=== PATIENT | male | born 1950 | race Caucasian/White ===

== ENCOUNTER 2019-10-18 01:18 | Outpatient (CLI) | payer OTHER, SELFPAY ==
[2019-10-18 18:19] LABS: SARS-CoV-2 RNA PCR Negative
== END 2019-10-18 01:19 | disposition home or self-care (01) ==
LOC: ANHCOVIDDT 01:19
PROVIDERS: Radiology Diagnostic Radiology; PCP Nurse Practitioner Adult Health; Visit Provider Nurse Practitioner Adult Health
DX: Z01.812 Encounter for preprocedural laboratory examination (principal); Z20.828 Contact with and (suspected) exposure to other viral communicable diseases
CPT/HCPCS: 87635; C9803; U0003

== ENCOUNTER 2019-10-20 08:45 | Outpatient (CLI) | payer OTHER, SELFPAY ==
[2019-10-16 15:03] VITALS: BMI 29.5
--- NOTE | ~2019-10-20 | CT_ITS ---
EXAMINATION: CT cervical spine w con EXAM DATE: 10/20/2019 12:07 INDICATION: Cervicalgia, cervical and lumbar radiculopathy. Cervical fusion. Total myelogram reques audelia. TECHNIQUE: Spiral CT of the cervical spine was performed with injection of intrathecal contrast, 10 c c Omnipaque 300. Axial images were reviewed. Coronal and sagittal reformatted images were also revi ewed. The dose-length product (DLP) for this examination was 446.56 mGy-cm. The exposure was tailore d according to patient size (auto mA exposure control), and iterative reconstruction (ASIR) was used as additional dose reduction technique. Comparison is made to prior examination from 07/26/2018. FINDINGS: There is adequate intrathecal opacification. There are no acute fractures identified. The o dontoid process is intact. The lateral masses of C1 line up with C2. Interbody and anterior fusion C 5-T1 with solid bone bridging. Hardware is intact. There is 5 mm anterolisthesis C3 on C4 with modera te loss of this disc height, 3 mm anterolisthesis C4 on C5 with moderate loss of this disc height. Mo derate to severe disc disease at T1-2. Some apical emphysema. Level by level evaluation: C2-C3: There is a mild diffuse disc bulge. Uncovertebral joint arthropathy: Mild right. Facet joint arthropathy: Moderate to severe right, mild left. Neural foraminal stenosis: No stenosis. Central canal stenosis: No stenosis. C3-C4: There is a mild to moderate diffuse disc bulge asymmetric to the left Uncovertebral joint arthropathy: Moderate to severe left, mild right. Facet joint arthropathy: Moderate to severe left, moderate right. Neural foraminal stenosis: Severe left, mild to moderate right. Central canal stenosis: Mild to moderate, left-sided spinal cord being indented. C4-C5: There is a mild to moderate diffuse disc bulge. Uncovertebral joint arthropathy: Moderate right, mild to moderate left. Facet joint arthropathy: Moderate right, mild to moderate left. Neural foraminal stenosis: Moderate right, mild left. Central canal stenosis: Mild. C5-C6: This level is fused. Uncovertebral joint arthropathy: Moderate to severe left, mild to moderate right. Facet joint arthropathy: Mild to moderate bilateral. Neural foraminal stenosis: Mild to moderate left, mild right. Central canal stenosis: No stenosis. C6-C7: This level is fused. Uncovertebral joint arthropathy: Moderate left, mild to moderate right. Facet joint arthropathy: Mild to moderate left, mild right. Neural foraminal stenosis: Moderate left, mild to moderate right. Central canal stenosis: No stenosis. C7-T1: This level is fused. Uncovertebral joint arthropathy: Moderate to severe bilateral. Facet joint arthropathy: Mild bilateral. Neural foraminal stenosis: Mild to moderate bilateral. Central canal stenosis: No stenosis. Cannot appreciate any significant interval change compared to prior CT neck 2019. IMPRESSION: 1. C3-4 severe left neural foraminal stenosis. 2. Lesser spondylosis above. 3. Intact fusion C5-T1. Reviewed, dictated and finalized at location A.
--- NOTE | ~2019-10-20 | XR_ITS ---
EXAMINATION: XR myelogram spine total EXAM DATE: 10/20/2019 12:26 INDICATION: Cervical and lumbar radiculopathy. Low back pain. TECHNIQUE: Informed consent was obtained from the patient for doing this procedure. I discussed josh efits and risks including bleeding, infection, backache, headache and seizure. Alternatives also disc ussed. The DAP for this procedure was 10 Gycm2. No prior study for comparison. Time out procedure was performed. [employer] radiograph was obtained and images for rib counting. Patient has cervical fusion hardware, pacemaker, sternotomy wires, shoulder replacements. An entry site was chosen at the L4-5 level. A left paracentral approach was used. Standard sterile prep was done wit h Betadine. Entry site was infiltrated with 5 cc 1% lidocaine. A 3.5 22G spinal needle was then in serted into the spinal canal. 10 mL Omnipaque 300 were then injected into the thecal sac. Frontal, lateral and oblique fluoroscopic images were then acquired of the lumbar spine. Patient was then placed in Trendelenburg until small amount of contrast confirmed in the cervical region. The pat ient was then transferred to CT for additional imaging of the entire spine. Following this, patient w as placed in postoperative area for 2 hours observation prior to being discharged. There were no imme diate complications. FINDINGS: There are 12 rib-bearing thoracic vertebral bodies, 5 lumbar vertebral bodies. There is mi ld thoracic dextroscoliosis. Evidence of advanced lumbar spondylosis. Contrast within the cervical sp ine was only slightly visualized on this portion of the examination which was used to confirm its pre sent in the cervical region. On subsequent CT lumbar spine there was moderate to severe stenosis at L 3-4 with fair amount of contrast remaining below that level, but no myelographic block. Lateral proje ction obtained during procedure to identify small amount of contrast extending beyond this level, and contrast layering in the thecal sac is not subdural or epidural. IMPRESSION: Status post intrathecal injection of contrast for subsequent CT cervical thoracic and danny mbar spine. Reviewed, dictated and finalized at location A. IMPRESSION: Status post intrathecal injection of contrast for subsequent CT ce rvical thoracic and lumbar spine.
--- NOTE | ~2019-10-20 | CT_ITS ---
EXAMINATION: CT thoracic lumbar w con EXAM DATE: 10/20/2019 12:07 INDICATION: Cervical and lumbar radiculopathy. Neck pain. TECHNIQUE: Spiral CT thoracolumbar spine was performed following injection of 10 cc Omnipaque 300 alfredo ution intrathecally. Axial, coronal and sagittal images of the thoracic spine were reviewed. Axial, c oronal and sagittal images of the lumbar spine were reviewed. The dose-length product (DLP) for this examination was 1477.90 mGy-cm. The exposure was tailored according to patient size (auto mA exposur e control), and iterative reconstruction (ASIR) was used as additional dose reduction technique. The re is no prior study for comparison. FINDINGS: There is adequate intrathecal contrast for evaluating the spinal canal. Metallic artifact f rom pacemaker/AICD device in cervical fusion hardware. THORACIC SPINE: There is overall mild to moderate thoracic facet arthropathy. No more than mild thora cic central canal stenosis at any given level from mild disc bulges and facet arthropathy. No expansi on of the spinal cord. Moderate to severe disc disease at T1-T2, otherwise overall moderate thoracic disc disease. At T11-12 there is moderate right neural foraminal stenosis. This is probably the most narrowed thoracic neural foramina. No endplate erosive change. The vertebral bodies are aligned in th e AP dimension. Paraspinal soft tissue is unremarkable. Scattered mediastinal, and a right lower lobe granuloma. There are no osteoblastic or osteolytic lesions identified. LUMBAR SPINE: There is good intrathecal opacification of contrast. Contrast is more dense below the L 3/4 level, where there is nerve root crowding, minimal CSF space surrounding the traversing nerve michaelle ts for contrast to progress cephalad. Contrast did reach the capitate, no myelographic block. Below t he L3-4 level there is nerve root redundancy. Sacrum is intact. There is moderate bilateral sacroilia c primary osteoarthritis. There is moderate to severe disc disease at L1-2, and L3-S1. The L2-3 vertebral bodies are partially fused. There are moderate endplate osteophytes. There is 4 mm retrolisthesis L5 on S1. Mild diffuse l oss of vertebral body heights without acute fracture line. No spondylolysis. Incidental note made of low-density left adrenal gland lesion measuring 2.0 cm, consistent with adenoma. There may be a 7 mm right adrenal gland adenoma as well. Level by level evaluation: T12-L1: There is a mild diffuse disc bulge. Facet arthropathy: Mild. Neural foraminal stenosis: Mild to moderate right, mild left. Central canal stenosis: Mild. L1-L2: There is a mild to moderate diffuse disc bulge. Facet arthropathy: Mild to moderate. Neural foraminal stenosis: Mild to moderate bilateral. Central canal stenosis: Mild to moderate. L2-L3: There is a moderate diffuse disc bulge. Facet arthropathy: Mild to moderate. Neural foraminal stenosis: Mild to moderate bilateral. Central canal stenosis: Moderate. L3-L4: There is a moderate diffuse disc bulge. Facet arthropathy: Moderate. Neural foraminal stenosis: Moderate left, mild to moderate right. Central canal stenosis: Moderate to severe. L4-L5: There is a mild to moderate diffuse disc bulge. Facet arthropathy: Moderate. Neural foraminal stenosis: Moderate to severe right, moderate left. Central canal stenosis: Moderate. L5-S1: There is a mild to moderate diffuse disc bulge. Facet arthropathy: Mild to moderate. Neural foraminal stenosis: Moderate to severe right, moderate left. Central canal stenosis: Moderate. IMPRESSION: 1. L2-3 moderate and L3-4 moderate to severe central canal stenosis. 2. Advanced lumbar spondylosis as detailed above. 3. Moderate thoracic disc disease, mild to moderate arthropathy Reviewed, dictated
[2019-10-20 09:21] LABS: Mean Platelet Volume 9.2 fl (7.4-10.4); Platelet Count Result 180 k/mm3 (150-375)
[2019-10-20 09:30] LABS: INR 1.1; Prothrombin Time 13.7 Seconds (11.1-14.7)
[2019-10-20 11:12] VITALS: BP 126/62; PULSE 71; RESP 20; O2SAT 98
[2019-10-20 11:50] VITALS: BP 109/58; PULSE 71; RESP 20; O2SAT 98
[2019-10-20 12:05] VITALS: BP 117/65; PULSE 72; RESP 16; TEMP 36.7; O2SAT 97
[2019-10-20 12:35] VITALS: BP 111/61; PULSE 70; RESP 14; O2SAT 97
[2019-10-20 13:05] VITALS: BP 121/65; PULSE 75; RESP 14; O2SAT 97
[2019-10-20 13:35] VITALS: BP 126/70; PULSE 74; RESP 14; O2SAT 95
--- NOTE | 2019-10-20 14:31 | SUR.PHASEII ---
1340 dr reyes here and talked to pt.
== END 2019-10-20 14:00 | disposition home or self-care (01) ==
PROVIDERS: Radiology Diagnostic Radiology; PCP Internal Medicine; Visit Provider Nurse Practitioner Adult Health
DX: M47.26 Other spondylosis with radiculopathy, lumbar region (principal); M51.34 Other intervertebral disc degeneration, thoracic region; M47.22 Other spondylosis with radiculopathy, cervical region
CPT/HCPCS: 36415; 62305; 72126; 72129; 72132; 85049; 85610; Q9967

== ENCOUNTER 2019-10-23 08:00 | Outpatient (CLI) | payer OTHER, SELFPAY ==
--- NOTE | ~2019-10-23 | DEXA_ITS ---
Bone Density Report Name: Indra Camarena Age: 68 Sex: Male Ethnicity: White Date of : 1950 Indication: height loss; cancer; Referring Provider: Nina, Azalea Encarnacion Study: Bone densitometry was performed. Exam Date: October 23, 2019 Accession number: [id number] Bone Density: Region BMD T-score Z-score Classification AP Spine (L1-L4) 1.532 4.0 4.9 Normal Femoral Neck (Left) 0.651 -2.0 -0.9 Osteopenia Total Hip (Left) 0.819 -1.4 -0.8 Osteopenia Total Hip Bilateral Avg 0.818 -1.4 -0.8 Osteopenia Femoral Neck (Right) 0.755 -1.3 -0.1 Osteopenia Total Hip (Right) 0.817 -1.4 -0.8 Osteopenia World Health Organization criteria for BMD impression classify patients as: Normal (T-score at or above -1.0), Osteopenia (T-score between -1.0 and -2.5), or Osteoporosis (T-score at or below -2.5). 10-year Fracture Risk(1): Major Osteoporotic Fracture 8.0% Hip Fracture 2.1% Reported Risk Factors: [place] (), Neck BMD=0.651, BMI=27.0 (1) FRAX(R) Version 3.08. Fracture probability calculated for an untreated patient. Fracture probability may be lower if the patient has received treatment. Clinical Information Provided by Patient: Has the following medical conditions: Cancer Patient maximum height was 73 No regular weight bearing exercise Drinks caffeinated beverages Impression: The patient has low bone mass, based on the Left Femoral Neck T-score. The patient has an estimated ten-year risk of hip fracture of 2.1% and an estimated ten-year risk of major fracture of 8%, based on the WHO FRAX algorithm. Discussion: BONE DENSITY IS LOW AT ONE OR MORE SKELETAL SITES. This patient's lowest T-score is low at one or more skeletal sites. It meets the World Health Organization's (WHO) criteria for ?low bone mass? (T-score between -1.0 and -2.5). The patient's 10-year risk of fracture as calculated by FRAX is less than the threshold where pharmacological therapy is recommended by the National Osteoporosis Foundation (NOF). However, all treatment decisions require clinical judgment and consideration of individual patient factors, including patient preferences, comorbidities, previous drug use, risk factors not captured in the FRAX model (e.g., frailty, falls, vitamin D deficiency, increased bone turnover, interval significant decline in bone density) and possible under or overestimation of fracture risk by FRAX. The patient should follow a healthful lifestyle (good nutrition with adequate calcium and vitamin D, and appropriate weight-bearing exercise). Follow-Up: Consider repeating this study in 2 to 3 years to reassess this patient's status, or sooner if there is some new clinical indication. Reported by: SYMONE on 10/23/2019 8:31:00 AM. Reviewed, dictated and finalize
== END 2019-10-23 08:01 | disposition home or self-care (01) ==
LOC: ANHIMG 08:01
PROVIDERS: PCP Internal Medicine; Visit Provider Nurse Practitioner Adult Health
DX: M81.8 Other osteoporosis without current pathological fracture (principal); Z13.820 Encounter for screening for osteoporosis; M85.852 Other specified disorders of bone density and structure, left thigh; M85.851 Other specified disorders of bone density and structure, right thigh
CPT/HCPCS: 77080